=== PATIENT | female | born 1975 | race African-American/Black ===

== ENCOUNTER 2019-06-02 10:03 | Emergency (ER) | payer MEDICAID ==
[~2019-06-02] VITALS: Ht 162.6 cm; Wt 61.0 kg
[~2019-06-02 10:03] MED LIST: CALC215T PO; FERR256T PO; PREN-22 PO
[2019-06-02] MEDS ORDERED: IBUPROFEN 600MG TABLET PO ONE (11:00)
[2019-06-02 11:58] VITALS: BP 122/83
== END 2019-06-02 12:11 | disposition home or self-care (01) ==
LOC: ER 10:03
DX: L03.031 Cellulitis of right toe (principal); Z76.0 Encounter for issue of repeat prescription
CPT/HCPCS: 73620; 99283